=== PATIENT | female | born 2005 | race Caucasian/White ===

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

== ENCOUNTER 2025-06-02 10:50 | Outpatient (CLI) | payer OTHER, SELFPAY ==
--- NOTE | ~2025-06-02 | US_ITS ---
PROCEDURE(S): US breast LT limited INDICATION(S): Follow-up biopsy COMPARISON(S): May 15, 2024 TECHNIQUE: Grayscale and color Doppler imaging. FINDINGS: Sonography through the 4:00 position demonstrates the presence of the superficially located, circumscribed, hypoechoic mass. It contains a biopsy marker. It is more heterogeneous on the current study, but it has significantly decreased in size. The maximum measurement is now 2.1 cm, decreased from 2.4 cm. The AP diameter has decreased to 10 mm from 19 mm. A preprocedural study is not available for comparison. IMPRESSION: Significant decrease in the size of the previously sampled mass. BI-RADS 2 - Benign. Reviewed, dictated and finalized at location C. [employer]ITY C[employer] DEVELOPMENT OFFICER
== END 2025-06-02 10:51 | disposition home or self-care (01) ==
LOC: ANHFOHIMG 10:51
PROVIDERS: Visit Provider Surgery
DX: N63.0 Unspecified lump in unspecified breast (principal); N63.23 Unspecified lump in the left breast, lower outer quadrant
CPT/HCPCS: 76642